=== PATIENT | female | born 1990 | race Two or more races ===

== ENCOUNTER 2021-06-24 06:01 | Emergency (ER) | payer BC ==
[~2021-06-24] VITALS: Ht 152.4 cm; Wt 95.3 kg
--- NOTE | 2021-06-24 06:17 | NUR ---
TO ER BED 4. [id number] C/O H/A , AND CHEST PAIN RADIATING TO L ARM @ APPROX. 0530AM. PT WAS AT WORK WHEN SYMPTOMS BEGAN ABRUPTLY. PAIN IS DESCRIBED "STABBING" 09/11 ON P/S. V/S STABLE. NOT IN RESPIRATORY DISTRESS. CONNECTED TO MONITOR.
--- NOTE | 2021-06-24 07:20 | NUR ---
LAB AT BEDSIDE
[2021-06-24 07:32] LABS: BASOPHILS % (AUTO) 0.3 % (0.0-2.0); EOSINOPHILS % (AUTO) 1.2 % (0.0-6.0); HEMATOCRIT 39 % (33-45); HEMOGLOBIN 13.4 g/dL (11.5-14.8); LYMPHOCYTES # (AUTO) 2.9 K/uL (0.8-4.8); LYMPHOCYTES % (AUTO) 36.6 % (20.0-44.0); MEAN CORPUSCULAR HGB CONC 34 g/dl (31.0-36.0); MEAN CORPUSCULAR VOLUME 87 fL (82-100); MONOCYTES # (AUTO) 0.5 K/uL (0.1-1.30); MONOCYTES % (AUTO) 6.8 % (2.0-12.0); NEUTROPHILS # (AUTO) 4.3 K/uL (1.8-8.9); NEUTROPHILS % (AUTO) 55.1 % (43.0-81.0); PLATELET COUNT (AUTO) 279 K/uL (150-450); RED BLOOD CELL COUNT(AUTO) 4.52 MIL/uL (4.0-5.2); WHITE BLOOD COUNT (AUTO) 7.8 K/uL (4.3-11.0)
[2021-06-24 07:38] LABS: CALCIUM, SERUM 8.3 mg/dL (8.5-10.1); CARBON DIOXIDE 26 mmol/L (21-32); CHLORIDE 106 mmol/L (98-107); CREATININE 0.6 mg/dL (0.6-1.3); GLUCOSE 97 mg/dL (74-106); POTASSIUM 3.5 mmol/L (3.5-5.1); SODIUM SERUM 140 mmol/L (136-145); UREA NITROGEN, BLOOD 15 mg/dL (7-18)
[2021-06-24] MEDS ORDERED: LORAZEPAM 0.5 MG TABLET ONE (08:28)
[2021-06-24] MEDS ORDERED: LORAZEPAM 0.5 MG TABLET PO ONE (08:30)
--- NOTE | 2021-06-24 08:41 | NUR ---
Patient discharged to home in stable condition. Written and verbal after care instructions given. Patient verbalizes understanding of instruction.
[2021-06-24 08:42] VITALS: BP 107/79
== END 2021-06-24 08:42 | disposition home or self-care (01) ==
LOC: ER 06:05
DX: R07.89 Other chest pain (principal); F41.9 Anxiety disorder, unspecified; Z60.2 Problems related to living alone
CPT/HCPCS: 36415; 71045-TC; 80048-TC; 84484-TC; 85025-TC